=== PATIENT | male | born 1930 | race Caucasian/White ===

== ENCOUNTER 2017-05-17 16:11 | Inpatient (IN) | payer MEDICARE, OTHER ==
[2017-05-17 16:22] VITALS: BMI 30.5
--- NOTE | 2017-05-17 17:16 | PDOC ---
History of Present Illness - General Chief Complaint: Injury Stated Complaint: FALL INJURY Time Seen by Provider: 05/17/17 16:30 History Source: Patient Exam Limitations: Language Barrier - History of Present Illness Initial Comments: 05/17/17 17:05 Patient is a 86M with history of prostate cancer (last chemo march 10, not on chemo) here today complaining of a fall. He was trying to get into the car, but missed and fell to the ground, hitting his head. He's also complaining of associated intermittent dizziness and weakness, and headache that has been going on for years. He says that he's had multiple tests done, but that they've never figured out what was causing his dizziness. He denies associated chest pain, shortness of breath. He takes no blood thinners. He denies pain or trauma to any other area. Past History - Past Medical History Allergies/Adverse Reactions: Allergies Allergy/AdvReac Type Severity Reaction Status Date / Time No Known Allergies Allergy Verified 05/17/17 16:17 Home Medications: Ambulatory Orders Bicalutamide 50 mg PO DAILY 05/17/17 Tamsulosin HCl 10 mg PO DAILY 05/17/17 Other medical history: ARTHRITIS, ENLARGED PROSTATE - Suicide/Smoking/Psychosocial Hx Smoking History: Never smoked Review of Systems - Review of Systems Comments:: 05/17/17 17:16 GENERAL/CONSTITUTIONAL: No fever or chills. Positive for weakness and dizziness. HEAD, EYES, EARS, NOSE AND THROAT: No change in vision. No sore throat. CARDIOVASCULAR: No chest pain or shortness of breath RESPIRATORY: No cough, wheezing, or hemoptysis. GASTROINTESTINAL: No nausea, vomiting, diarrhea or constipation. GENITOURINARY: No dysuria, frequency, or change in urination. MUSCULOSKELETAL: Positive for bilateral knee pain SKIN: No rash NEUROLOGIC: No headache, vertigo, loss of consciousness, or change in strength/ sensation. HEMATOLOGIC/LYMPHATIC: No anemia, easy bleeding, or history of blood clots. ALLERGIC/IMMUNOLOGIC: No hives or skin allergy. *Physical Exam - Vital Signs Last Vital Signs Temp Pulse Resp BP Pulse Ox 98.3 F 93 H 19 130/72 98 05/17/17 16:17 05/17/17 16:17 05/17/17 16:17 05/17/17 16:17 05/17/17 16:41 - Physical Exam Comments: 05/17/17 17:17 GENERAL: Awake, alert, and fully oriented, in no acute distress HEAD: No signs of trauma, normocephalic, 4x4 cm area of erythema, no lacerations , no abrasions, nontender, no deformities EYES: PERRLA, EOMI, sclera anicteric, conjunctiva clear ENT: Auricles normal inspection, hearing grossly normal, nares patent, oropharynx clear without exudates. Moist mucosa NECK: Normal ROM, supple, no lymphadenopathy, JVD, or masses, no midline tenderness LUNGS: No distress, speaks full sentences, clear to auscultation bilaterally HEART: Regular rate and rhythm, normal S1 and S2, no murmurs, rubs or gallops, peripheral pulses normal and equal bilaterally. ABDOMEN: Soft, nontender, normoactive bowel sounds. No guarding, no rebound. No masses EXTREMITIES: Normal inspection, Normal range of motion, no edema. No clubbing or cyanosis. No evidence of trauma NEUROLOGICAL: Cranial nerves II through XII grossly intact. Normal speech, no focal sensorimotor deficits SKIN: Warm, Dry, normal turgor, no rashes or lesions noted. ED Treatment Course - LABORATORY CBC & Chemistry Diagram: 05/17/17 17:10 05/17/17 17:10 - RADIOLOGY Radiology Studies Ordered: Category Date Time Status HEAD CT WITHOUT CONTRAST [CT] Stat CT Scan 05/17/17 16:49 Ordered CHEST X-RAY PORTABLE* [RAD] Stat Radiology 05/17/17 16:49 Ordered Medical Decision Making - Medical Decision Making 05/17/17 17:20 86M with history of prostate cancer (s/p chemo, last treatment March 10) here today complaining of headache after fall. Vital signs stable and normal. Will evaluate with labs, cxr, ecg, and head ct. 05/17/17 18:12 EKG shows afib, rate 77bpm. Irregular, no p-waves. No st-elevations. T-wave inversion in lead III. 05/17/17 19:[address] There is no acute cortical infarction, intracranial mass, edema, hydrocephalus or abnormal extraaxial collection. 05/17/17 19:37 Laboratory Tests 05/17/17 05/17/17 05/17/17 17:10 17:10 17:10 WBC 6.5 Hgb 9.1 L Hct 28.7 L Plt Count 253 INR 1.13 Troponin I 0.02 CBC shows an anemia. INR normal. Trop negative. 05/17/17 23:20 Admitted for new onset afib. *DC/Admit/Observation/Transfer Diagnosis at time of Disposition: Atrial fibrillation Qualifiers: Atrial fibrillation type: unspecified Qualified Code(s): I48.91 - Unspecified atrial fibrillation - Discharge Dispostion Condition at time of disposition: Good Admit: Yes
[2017-05-17 17:17] LABS: BASOPHIL 0.9 % (0-2.0); EOSINOPHIL 1.2 % (0-4.5); MCH 21.1 pg (25.7-33.7); MCHC 31.7 g/dl (32.0-35.9); MEAN CELL VOLUME 66.5 fl (80-96); MEAN PLT VOLUME 7.4 fl (7.5-11.1); NEUTROPHILS 62.5 % (42.8-82.8); PLATELET COUNT 253 K/MM3 (134-434); RDW 17.6 % (11.9-15.9); WHITE BLOOD COUNT 6.5 K/mm3 (4.0-10.0)
[2017-05-17 17:30] LABS: INR 1.13 (0.82-1.09); PROTHROMBIN TIME (PATIENT) 12.5 SEC (9.98-11.88)
--- NOTE | 2017-05-17 17:39 | PDOC ---
Attending Attestation - Resident Resident Name: Nick Sanders - ED Attending Attestation I have performed the following: I have examined & evaluated the patient, The case was reviewed & discussed with the resident, I agree w/resident's findings & plan, Exceptions are as noted - Medical Decision Making 05/17/17 18:40 Addendum to scribe chart- Patient noted to have afib on EKG. D/w family, appears to be new onset. Will attempt to confirm with PMD. <Sofiya Stokes - Last Filed: 05/17/17 18:40> - HPI HPI: The patient is an 86 year old male, accompanied by family, with a past medical history of prostate cancer (last chemo February 2017, not currently on chemo) who presents to the emergency department today s/p fall. The patient woke up dizzy this morning, fell, and hit his head on the concrete. As per daughter, the patient has chronic dizziness. In ED daughter states that the patients belly is larger than normal and had been spasming while receiving and ECG. GENERAL/CONSTITUTIONAL: No fever or chills. No weakness. HEAD, EYES, EARS, NOSE AND THROAT: (+) Small hematoma to right occiput. No change in vision. No ear pain or discharge. No sore throat. GASTROINTESTINAL: No nausea, vomiting, diarrhea or constipation. GENITOURINARY: No dysuria, frequency, or change in urination. CARDIOVASCULAR: No chest pain or shortness of breath. RESPIRATORY: No cough, wheezing, or hemoptysis. MUSCULOSKELETAL: No joint or muscle swelling or pain. No neck or back pain. SKIN: No rash NEUROLOGIC: (+) No headache, dizziness, or change in strength/sensation. ENDOCRINE: No increased thirst. No abnormal weight change. HEMATOLOGIC/LYMPHATIC: No anemia, easy bleeding, or history of blood clots. ALLERGIC/IMMUNOLOGIC: No hives or skin allergy. - Physicial Exam PE: 05/17/17 18:02 GENERAL: Awake, alert, and fully oriented, in no acute distress HEAD: (+) Small hematoma to right occiput. EYES: PERRLA, EOMI, sclera anicteric, conjunctiva clear ENT: Auricles normal inspection, hearing grossly normal, nares patent, oropharynx clear without exudates. Moist mucosa NECK: Normal ROM, supple, no lymphadenopathy, JVD, or masses LUNGS: Breath sounds equal, clear to auscultation bilaterally. No wheezes, and no crackles HEART: Regular rate and rhythm, normal S1 and S2, no murmurs, rubs or gallops ABDOMEN: (+) Soft, nontender, normoactive bowel sounds. No guarding, no rebound. Protuberant abdomen EXTREMITIES: Normal range of motion, no edema. No clubbing or cyanosis. No cords, erythema, or tenderness NEUROLOGICAL: Cranial nerves II through XII grossly intact. Normal speech SKIN: Warm, Dry, normal turgor, no rashes or lesions noted. - Medical Decision Making 05/17/17 18:01 Patient is status post fall after dizziness. Patient has chronic dizziness and has been worked up previously for chronic dizziness. Plan: Will obtain head CT based on age Cardiac workup If within normal limits will discharge home Exam: CT Head Impression: No acute skull fracture, intracranial hemorrhage or parenchymal edema demonstrated. There is no acute cortical infarction, intracranial mass, edema, hydrocephalus or abnormal extra axial collection. 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 Read By: Dr. Thiago Nick MD Documentation prepared by Nawaf Dominique, acting as certified medical records coder for Sofiya Stokes MD. <Nawaf Dominique - Last Filed: 05/18/17 00:28>
[2017-05-17 17:41] LABS: ALBUMIN 3.3 g/dl (3.4-5.0); ANION GAP 5 (8-16); BILIRUBIN,TOTAL 0.5 mg/dL (0.2-1.0); CO2 27 mmol/L (21-32); CREATININE 1.1 mg/dL (0.7-1.3); GLUCOSE,RANDOM 127 mg/dL (74-106); MAGNESIUM 2.2 mg/dL (1.8-2.4); SGOT/AST 17 U/L (15-37); SGPT/ALT 33 U/L (12-78); TOT PROT 6.4 g/dl (6.4-8.2)
[2017-05-17 17:43] LABS: ALK PHOS 118 U/L (45-117); CPK 87 IU/L (39-308); TROPONIN I 0.02 ng/ml (0.00-0.05)
[2017-05-17 19:45] LABS: ANISOCYTOSIS 2+; HYPOCHROMIA 2+; MICROCYTOSIS 2+; OVALOCYTE 1+; PLATELET COMMENT2 NO CLOTTING DETECTED; PLATELET ESTIMATE ADEQUATE (NORMAL); POIKILOCYTOSIS 2+; POLYCHROMASIA 2+
[2017-05-17 20:46] LABS: URINE APPEARANCE CLEAR; URINE BILIRUBIN NEGATIVE (NEGATIVE); URINE BLOOD NEGATIVE (NEGATIVE); URINE COLOR LTYELLOW; URINE GLUCOSE (UA) NEGATIVE (NEGATIVE); URINE KETONE NEGATIVE (NEGATIVE); URINE LEUK ESTERASE NEGATIVE (NEGATIVE); URINE NITRITE NEGATIVE (NEGATIVE); URINE PROTEIN NEGATIVE (NEGATIVE); URINE UROBILINOGEN NEGATIVE mg/dL (0.2-1.0)
[2017-05-18 08:33] LABS: ALBUMIN 3.4 g/dl (3.4-5.0); ANION GAP 6 (8-16); BILIRUBIN,TOTAL 0.6 mg/dL (0.2-1.0); CALCIUM 8.3 mg/dL (8.5-10.1); CO2 28 mmol/L (21-32); GLUCOSE,RANDOM 103 mg/dL (74-106); SGOT/AST 15 U/L (15-37); SGPT/ALT 31 U/L (12-78); TOT PROT 6.4 g/dl (6.4-8.2)
--- NOTE | 2017-05-18 08:37 | EKG ---
Test Reason : Blood Pressure : / mmHG Vent. Rate : 077 BPM Atrial Rate : 300 BPM P-R Int : 000 ms QRS Dur : 078 ms QT Int : 420 ms P-R-T Axes : 000 -09 025 degrees QTc Int : 475 ms ATRIAL FIBRILLATION ABNORMAL ECG NO PREVIOUS ECGS AVAILABLE Confirmed by MD MERNA, ELLEN ([id number]) on 05/18/2017 8:37:18 AM Referred By: Confirmed By:ELLEN BAUMAN MD
[2017-05-18 08:47] LABS: CPK 111 IU/L (39-308); FERRITIN 8.3 ng/ml (16.4-293.9); TROPONIN I 0.03 ng/ml (0.00-0.05)
[2017-05-18 08:48] LABS: ALK PHOS 115 U/L (45-117)
[2017-05-18] MEDS ORDERED: TAMSULOSIN HCL 0.4 MG CAP.ER.24H (FP) PO SCH (10:00)
[2017-05-18] MEDS ORDERED: FLU VACCINE QUAD 60 MCG/0.5 ML (MDV 17-18) IM ONE (10:00)
[2017-05-18 10:48] LABS: BASOPHIL 0.5 % (0-2.0); EOSINOPHIL 0.9 % (0-4.5); MCHC 31.6 g/dl (32.0-35.9); MEAN CELL VOLUME 66.3 fl (80-96); MEAN PLT VOLUME 8.2 fl (7.5-11.1); NEUTROPHILS 61.7 % (42.8-82.8); PLATELET COUNT 253 K/MM3 (134-434); RDW 17.2 % (11.9-15.9); WHITE BLOOD COUNT 7.9 K/mm3 (4.0-10.0)
--- NOTE | 2017-05-18 10:49 | HP ---
Admitting History and Physical - Admission History of Present Illness: 86M with history of prostate cancer (last chemo march 10, not on chemo) here today complaining of a fall. He was trying to get into the car, but missed and fell to the ground, hitting his head. He's also complaining of associated intermittent dizziness and weakness, and headache that has been going on for years. He says that he's had multiple tests done, but that they've never figured out what was causing his dizziness. He denies associated chest pain, shortness of breath. He takes no blood thinners. He denies pain or trauma to any other area. - Past Medical History Cardiovascular: No: CAD, CHF Renal/: Yes: Cancer (prostate) - Smoking History Smoking history: Never smoked Have you smoked in the past 12 months: No - Alcohol/Substance Use Hx Alcohol Use: No Home Medications - Allergies Allergies/Adverse Reactions: Allergies Allergy/AdvReac Type Severity Reaction Status Date / Time No Known Allergies Allergy Verified 05/17/17 16:17 - Home Medications Home Medications: Ambulatory Orders Bicalutamide 50 mg PO DAILY 05/17/17 Tamsulosin HCl 0.4 mg PO DAILY 05/17/17 Review of Systems - Review of Systems Constitutional: reports: Weakness Cardiovascular: denies: Chest Pain, Palpitations Respiratory: denies: SOB Gastrointestinal: reports: No Symptoms Musculoskeletal: reports: Muscle Weakness Neurological: reports: Headache, Unsteady Gait, Weakness Physical Examination Vital Signs: Vital Signs Temperature 97.5 F L 05/18/17 02:00 Pulse Rate 81 05/18/17 02:00 Respiratory Rate 20 05/18/17 02:00 Blood Pressure 121/71 05/18/17 02:00 O2 Sat by Pulse Oximetry (%) 100 05/18/17 00:00 Cardiovascular: Yes: S1, S2 Respiratory: Yes: Regular, CTA Bilaterally Gastrointestinal: Yes: Normal Bowel Sounds, Soft. No: Tenderness Edema: No Neurological: Yes: Alert, Oriented. No: Confusion, Facial Droop Labs: CBC, BMP 05/18/17 07:50 05/18/17 07:50 Imaging - Results Cat Scan: Report Reviewed Problem List - Problems (1) Atrial fibrillation Assessment/Plan: NEW ONSET WILL REPEAT CT OF HEAD IF NEGATIVE THEN START AC PT EVAL--THEN DECIDE ON NURSING HOME AC RATE CONTROLLED ECHO Code(s): I48.91 - UNSPECIFIED ATRIAL FIBRILLATION Qualifiers: Atrial fibrillation type: unspecified Qualified Code(s): I48.91 - Unspecified atrial fibrillation (2) Fall Assessment/Plan: PT EVAL Code(s): W19.XXXA - UNSPECIFIED FALL, INITIAL ENCOUNTER (3) Prostate cancer Code(s): C61 - MALIGNANT NEOPLASM OF PROSTATE
[2017-05-18] MEDS: BICALUTAMIDE 50 MG TABLET (FP) PO SCH (11:32)
[2017-05-18] MEDS: METOPROLOL TARTRATE 25 MG TABLET (FP) PO SCH (11:32)
--- NOTE | 2017-05-18 12:12 | CON.CARD ---
Consult Consult Specialty:: Cardiology Referred by:: Dr Veliz Reason for Consultation:: fall, afib - History of Present Illness Chief Complaint: fall History of Present Illness: He is an 86 year old man history of HTN not on medications anymore for several years, prostate cancer s/p XRT 2010 getting injections, admitted with a fall while getting out of a car. Denies dizziness, palpitations, lightheadedness or chest pain. No LOC. No prior or recent falls or events. 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 Noted to be in atrial fibrillation in the ER with controlled rates. - History Source History Provided By: Patient, Family Member, Medical Record Limitations to Obtaining History: Poor Historian - Past Medical History Cardio/Vascular: No: CAD, CHF Renal/: Yes: Cancer (prostate) - Alcohol/Substance Use Hx Alcohol Use: No - Smoking History Smoking history: Never smoked Have you smoked in the past 12 months: No Home Medications - Allergies Allergies/Adverse Reactions: Allergies Allergy/AdvReac Type Severity Reaction Status Date / Time No Known Allergies Allergy Verified 05/17/17 16:17 - Home Medications Home Medications: Ambulatory Orders Bicalutamide 50 mg PO DAILY 05/17/17 Tamsulosin HCl 0.4 mg PO DAILY 05/17/17 Family Disease History - Family Disease History Family History: Unable to Obtain Review of Systems - Review of Systems Constitutional: reports: No Symptoms Eyes: reports: No Symptoms HENT: reports: No Symptoms Neck: reports: No Symptoms Cardiovascular: reports: No Symptoms Respiratory: reports: No Symptoms Gastrointestinal: reports: No Symptoms Genitourinary: reports: No Symptoms Vital Signs: Vital Signs Temperature 97.8 F 05/18/17 10:00 Pulse Rate 75 05/18/17 10:00 Respiratory Rate 18 05/18/17 10:00 Blood Pressure 136/83 05/18/17 10:00 O2 Sat by Pulse Oximetry (%) 100 05/18/17 00:00 Constitutional: Yes: Well Nourished, No Distress, Calm Eyes: Yes: Conjunctiva Clear, EOM Intact HENT: Yes: Normocephalic Neck: Yes: Supple, Trachea Midline Respiratory: Yes: Regular, CTA Bilaterally Gastrointestinal: Yes: Normal Bowel Sounds, Soft Cardiovascular: Yes: Pulse Irregular JVD: No Carotid Bruit: No PMI: Non-Displaced Heart Sounds: Yes: S1, S2 Musculoskeletal: Yes: WNL Extremities: Yes: WNL Edema: No Peripheral Pulses WNL: Yes - Other Data Labs, Other Data: CBC, BMP 05/18/17 07:50 05/18/17 07:50 INR, PTT INR 1.13 (0.82-1.09) 05/17/17 17:10 Troponin, BNP 05/18/17 07:50 Troponin I 0.03 D Troponin, BNP 05/18/17 07:50 Troponin I 0.03 D atrial fibrillation, nl axis and intervals, no st or t wave changes. Echo: Pending Imaging - Results Chest X-ray: Report Reviewed (dominique) Cat Scan: Report Reviewed (chronic appearing punctate lacunes) Problem List - Problems (1) Atrial fibrillation Assessment/Plan: This is likely chronic atrial fibrillation with controlled VR. Echo would start Eliquis 5 mg bid if repeat head CT is negative for bleed. PT evaluation. No need for other medications. Rates are generally controlled off of medications. Continue telemetry. Code(s): I48.91 - UNSPECIFIED ATRIAL FIBRILLATION Qualifiers: Atrial fibrillation type: chronic Qualified Code(s): I48.2 - Chronic atrial fibrillation
--- NOTE | 2017-05-18 16:05 | CON.NEURO ---
Consult - History of Present Illness History of Present Illness: 86M with history of prostate cancer (last chemo march 10, not on chemo) here today complaining of a fall. He was trying to get into the car, but missed and fell to the ground, hitting his head. He's also complaining of associated intermittent dizziness and weakness, and headache that has been going on for years. He says that he's had multiple tests done, but that they've never figured out what was causing his dizziness. He denies associated chest pain, shortness of breath. He takes no blood thinners. He denies pain or trauma to any other area. also notes has numbness of his hands, unknown onet. and son bedside--going down for repeat HD Ct. found to be in AFIB. CT HD IMPRESSION: 1. No acute intracranial hemorrhage or acute skull fracture. No mass effect, midline shift or hydrocephalus. 2. Generalized age-related volume loss with mild microvascular ischemic changes and punctate chronic appearing lacunar infarcts in the right parietal periatrial white matter and right gangliocapsular region. - History Source History Provided By: Medical Record - Past Medical History Cardio/Vascular: No: CAD, CHF Renal/: Yes: Cancer (prostate) - Alcohol/Substance Use Hx Alcohol Use: No - Smoking History Smoking history: Never smoked Have you smoked in the past 12 months: No Home Medications - Allergies Allergies/Adverse Reactions: Allergies Allergy/AdvReac Type Severity Reaction Status Date / Time No Known Allergies Allergy Verified 05/17/17 16:17 - Home Medications Home Medications: Ambulatory Orders Bicalutamide 50 mg PO DAILY 05/17/17 Tamsulosin HCl 0.4 mg PO DAILY 05/17/17 Physical Exam-Neuro Vital Signs: Vital Signs Temperature 97.8 F 05/18/17 14:00 Pulse Rate 73 05/18/17 14:00 Respiratory Rate 20 05/18/17 14:00 Blood Pressure 138/80 05/18/17 14:00 O2 Sat by Pulse Oximetry (%) 97 05/18/17 09:00 Constitutional: Yes: Well Nourished, Calm Labs: CBC, BMP 05/18/17 07:50 05/18/17 07:50 INR, PTT INR 1.13 (0.82-1.09) 05/17/17 17:10 - Neuro Exam Level Of Consciousness: Yes: Alert, Oriented to Person (Awake and alert, EOMI, no nystagmus, no facial, motor 5/5, sesn in UE WNL, reflexes reduced ; gait not tested) Imaging - Results Cat Scan: Report Reviewed, Image Reviewed Problem List - Problems (1) Atrial fibrillation Code(s): I48.91 - UNSPECIFIED ATRIAL FIBRILLATION Qualifiers: Atrial fibrillation type: chronic Qualified Code(s): I48.2 - Chronic atrial fibrillation (2) Fall Code(s): W19.XXXA - UNSPECIFIED FALL, INITIAL ENCOUNTER (3) Prostate cancer Code(s): C61 - MALIGNANT NEOPLASM OF PROSTATE (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 He was trying to get into the car, but missed and fell to the ground, hitting his head. He's also complaining of associated intermittent dizziness and weakness, and headache that has been going on for years. He says that he's had multiple tests done, but that they've never figured out what was causing his dizziness. He denies associated chest pain, shortness of breath. He takes no blood thinners. He denies pain or trauma to any other area. also notes has numbness of his hands, unknown onset. found to be in AFIB. exam nonfocal , no clear evidence of a new stroke; + AFIB 1) await repeat HD CT, if (-) for new event can start AC for AFIB from neuro standpoint 2) Numbness hands , ? cts vs chemo induced neuropathy , doubt central in nature Dr Horne [phone]
[2017-05-19 08:11] LABS: SERUM IRON 22 ug/dL (38-169); TOTAL IRON BINDING CAPACITY 360 ug/dL (250-450); UIBC 338 ug/dL (111-343)
[2017-05-19] MEDS: ASPIRIN COATED 81 MG TABLET.EC PO SCH (09:07)
[2017-05-19] MEDS: METOPROLOL TARTRATE 25 MG TABLET (FP) PO SCH (09:07)
[2017-05-19] MEDS: TAMSULOSIN HCL 0.4 MG CAP.ER.24H (FP) PO SCH (09:07)
[2017-05-19] MEDS: BICALUTAMIDE 50 MG TABLET (FP) PO SCH ×2 (09:12→09:22)
--- NOTE | 2017-05-19 11:24 | EKG ---
Test Reason : Blood Pressure : / mmHG Vent. Rate : 078 BPM Atrial Rate : 078 BPM P-R Int : 000 ms QRS Dur : 080 ms QT Int : 412 ms P-R-T Axes : 000 009 044 degrees QTc Int : 469 ms ATRIAL FIBRILLATION ABNORMAL ECG WHEN COMPARED WITH ECG OF 17-MAY-2017 17:18, NO SIGNIFICANT CHANGE WAS FOUND Confirmed by ADONIS ARMANDO MD ([id number]) on 05/19/2017 11:24:08 AM Referred By: JAYESH ANNE Confirmed By:ADONIS ARMANDO MD
--- NOTE | 2017-05-19 14:26 | PN ---
Progress Note, Physician Chief Complaint: Patient appears comfortable. He reports no palpitation, chest pain or SOB. Tele shows atrial fibrillation with controlled ventricular rate. History of Present Illness: 86 year old man with a history of HTN not on medications any more for several years, prostate cancer s/p XRT 2010 getting injections, admitted with a fall while getting out of a car without LOC. No prior or recent falls or events. 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 Noted to be in atrial fibrillation in the ER with controlled rates. - Current Medication List Current Medications: Active Medications Apixaban (Eliquis -) 5 mg PO BID [facility] Aspirin (Ecotrin -) 81 mg PO DAILY [facility] Last Admin: 05/19/17 09:07 Dose: 81 mg Bicalutamide (Casodex -) 50 mg PO DAILY [facility] Last Admin: 05/19/17 09:22 Dose: 50 mg Metoprolol Tartrate (Lopressor -) 25 mg PO DAILY [facility] Last Admin: 05/19/17 09:07 Dose: 25 mg Tamsulosin HCl (Flomax -) 0.4 mg PO DAILY@0830 [facility] Last Admin: 05/19/17 09:07 Dose: 0.4 mg - Objective Vital Signs: Vital Signs Temperature 98.3 F 05/19/17 08:50 Pulse Rate 92 H 05/19/17 08:50 Respiratory Rate 18 05/19/17 08:50 Blood Pressure 145/55 05/19/17 08:50 O2 Sat by Pulse Oximetry (%) 97 05/19/17 08:48 Constitutional: Yes: Well Nourished, No Distress Eyes: Yes: WNL, Conjunctiva Clear HENT: Yes: WNL, Atraumatic, Normocephalic Neck: Yes: WNL, Supple, Trachea Midline Cardiovascular: Yes: Pulse Irregular Respiratory: Yes: Regular, CTA Bilaterally Gastrointestinal: Yes: WNL, Normal Bowel Sounds, Soft, Abdomen, Obese ...Rectal Exam: Yes: Deferred Extremities: Yes: WNL Edema: No Peripheral Pulses WNL: Yes Labs: CBC, BMP 05/18/17 07:50 05/18/17 07:50 INR, PTT INR 1.13 (0.82-1.09) 05/17/17 17:10 Assessment/Plan Mr. Reyes has likely chronic atrial fibrillation with controlled ventricular response. Continue Eliquis 5 mg bid for stroke prevention. Echo pending. No need for other medications. Ventricular rates are generally controlled off of medications. Continue telemetry for now.
--- NOTE | 2017-05-19 16:39 | PN ---
Progress Note, Physician Chief Complaint: AWAKE ALERT BEDSIDE CHART AND NOTES REVIEWED - Current Medication List Current Medications: Active Medications Apixaban (Eliquis -) 5 mg PO BID [facility] Aspirin (Ecotrin -) 81 mg PO DAILY [facility] Last Admin: 05/19/17 09:07 Dose: 81 mg Bicalutamide (Casodex -) 50 mg PO DAILY [facility] Last Admin: 05/19/17 09:22 Dose: 50 mg Metoprolol Tartrate (Lopressor -) 25 mg PO DAILY [facility] Last Admin: 05/19/17 09:07 Dose: 25 mg Tamsulosin HCl (Flomax -) 0.4 mg PO DAILY@0830 [facility] Last Admin: 05/19/17 09:07 Dose: 0.4 mg - Objective Vital Signs: Vital Signs Temperature 98.5 F 05/19/17 14:15 Pulse Rate 69 05/19/17 14:15 Respiratory Rate 18 05/19/17 14:15 Blood Pressure 124/62 05/19/17 14:15 O2 Sat by Pulse Oximetry (%) 97 05/19/17 08:48 Constitutional: Yes: Mild Distress Eyes: Yes: WNL HENT: Yes: WNL Neck: Yes: WNL Cardiovascular: Yes: Pulse Irregular Respiratory: Yes: WNL Gastrointestinal: Yes: WNL Genitourinary: Yes: WNL Musculoskeletal: Yes: Muscle Weakness Extremities: Yes: WNL Edema: Yes Edema: LLE: 1+, RLE: 1+ Peripheral Pulses WNL: Yes Integumentary: Yes: WNL Wound/Incision: Yes: Clean/Dry Neurological: Yes: Pre-Existing Deficit, Weakness ...Motor Strength: LLE, RLE Psychiatric: Yes: WNL Labs: CBC, BMP 05/18/17 07:50 05/18/17 07:50 INR, PTT INR 1.13 (0.82-1.09) 05/17/17 17:10 Problem List - Problems (1) Atrial fibrillation Code(s): I48.91 - UNSPECIFIED ATRIAL FIBRILLATION Qualifiers: Atrial fibrillation type: chronic Qualified Code(s): I48.2 - Chronic atrial fibrillation (2) Fall Code(s): W19.XXXA - UNSPECIFIED FALL, INITIAL ENCOUNTER (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 Assessment/Plan AFIB RATE CONTROLLED ON METOPROLOL CONTINUE AC CARDIO FOLLOW UP ECHO REVIEWED OOB TO CHAIR WITH PT MRI BRAIN AGREE WITH NEUROLOGY IF DIZZINESS CONTINUES SHOULD HOLD OFF ON FLOMAX AND MONITOR
[2017-05-19] MEDS: APIXABAN 5 MG TABLET PO SCH (23:25)
[2017-05-20 07:55] VITALS: BP 122/68
[2017-05-20] MEDS ORDERED: PT OWN MED DRAWER 7, Y5N ONE (08:29)
[2017-05-20 08:37] LABS: FREE T4 1.11 ng/dl (0.76-1.16); THYROID STIMULATING HORMONE 3.91 uIU/ml (0.358-3.74)
[2017-05-20] MEDS: BICALUTAMIDE 50 MG TABLET (FP) PO SCH (09:14)
[2017-05-20] MEDS: ASPIRIN COATED 81 MG TABLET.EC PO SCH (09:14)
[2017-05-20] MEDS: APIXABAN 5 MG TABLET PO SCH (09:14)
[2017-05-20] MEDS: METOPROLOL TARTRATE 25 MG TABLET (FP) PO SCH (09:14)
[2017-05-20] MEDS: TAMSULOSIN HCL 0.4 MG CAP.ER.24H (FP) PO SCH (09:14)
[2017-05-20] MEDS ORDERED: FERROUS SO4 325 MG TABLET (FP) PO SCH (10:00)
--- NOTE | 2017-05-20 13:38 | PN ---
Progress Note, Physician Chief Complaint: Patient appears comfortable. He reports no palpitation, chest pain or SOB. Tele shows atrial fibrillation with controlled ventricular rate. History of Present Illness: 86 year old man with a history of HTN not on medications any more for several years, prostate cancer s/p XRT 2010 getting injections, admitted with a fall while getting out of a car without LOC. No prior or recent falls or events. 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 Noted to be in atrial fibrillation in the ER with controlled rates. Echocardiogram 05/19/2017 showed upper septal hypertrophy with normal wall motion and systolic function. LVEF = 56%. Normal RV. Mild LA and RA dilatation. Mild to moderate MR and mild AI. - Current Medication List Current Medications: Active Medications Apixaban (Eliquis -) 5 mg PO BID [facility] Last Admin: 05/20/17 09:14 Dose: 5 mg Aspirin (Ecotrin -) 81 mg PO DAILY [facility] Last Admin: 05/20/17 09:14 Dose: 81 mg Bicalutamide (Casodex -) 50 mg PO DAILY [facility] Last Admin: 05/20/17 09:14 Dose: 50 mg Ferrous Sulfate (Feosol -) 325 mg PO DAILY [facility] Last Admin: 05/20/17 09:14 Dose: 325 mg Metoprolol Tartrate (Lopressor -) 25 mg PO DAILY [facility] Last Admin: 05/20/17 09:14 Dose: 25 mg Tamsulosin HCl (Flomax -) 0.4 mg PO DAILY@0830 [facility] Last Admin: 05/20/17 09:14 Dose: 0.4 mg - Objective Vital Signs: Vital Signs Temperature 98 F 05/20/17 07:54 Pulse Rate 74 05/20/17 07:54 Respiratory Rate 20 05/20/17 08:00 Blood Pressure 122/68 05/20/17 07:54 O2 Sat by Pulse Oximetry (%) 98 05/20/17 08:00 Constitutional: Yes: Well Nourished, No Distress, Calm Eyes: Yes: Conjunctiva Clear, EOM Intact HENT: Yes: Atraumatic, Normocephalic Neck: Yes: WNL, Supple, Trachea Midline Respiratory: Yes: Regular, CTA Bilaterally Gastrointestinal: Yes: Normal Bowel Sounds, Soft, Abdomen, Obese ...Rectal Exam: Yes: Deferred Extremities: Yes: WNL Edema: No Peripheral Pulses WNL: Yes Labs: CBC, BMP 05/18/17 07:50 05/18/17 07:50 INR, PTT INR 1.13 (0.82-1.09) 05/17/17 17:10 Assessment/Plan Mr. Reyes has likely chronic atrial fibrillation with controlled ventricular response. He has normal cardiac function with mild left and right atrial dilatation. Continue Eliquis 5 mg bid for stroke prevention. No need for other medications. Ventricular rates are generally controlled off of medications. May discontinue telemetry. He can be discharged with current medication. Please call us for reconsult as needed.
[2017-05-20 14:38] VITALS: PULSE 60; TEMP 97.8
--- NOTE | 2017-05-20 15:26 | PN ---
Progress Note, Physician - Current Medication List Current Medications: Active Medications Apixaban (Eliquis -) 5 mg PO BID [facility] Last Admin: 05/20/17 09:14 Dose: 5 mg Aspirin (Ecotrin -) 81 mg PO DAILY [facility] Last Admin: 05/20/17 09:14 Dose: 81 mg Bicalutamide (Casodex -) 50 mg PO DAILY [facility] Last Admin: 05/20/17 09:14 Dose: 50 mg Ferrous Sulfate (Feosol -) 325 mg PO DAILY [facility] Last Admin: 05/20/17 09:14 Dose: 325 mg Metoprolol Tartrate (Lopressor -) 25 mg PO DAILY [facility] Last Admin: 05/20/17 09:14 Dose: 25 mg Tamsulosin HCl (Flomax -) 0.4 mg PO DAILY@0830 [facility] Last Admin: 05/20/17 09:14 Dose: 0.4 mg - Objective Vital Signs: Vital Signs Temperature 97.8 F 05/20/17 14:37 Pulse Rate 60 05/20/17 14:37 Respiratory Rate 18 05/20/17 14:37 Blood Pressure 122/68 05/20/17 07:54 O2 Sat by Pulse Oximetry (%) 98 05/20/17 08:00 Labs: CBC, BMP 05/18/17 07:50 05/18/17 07:50 INR, PTT INR 1.13 (0.82-1.09) 05/17/17 17:10 Problem List - Problems (1) Atrial fibrillation Code(s): I48.91 - UNSPECIFIED ATRIAL FIBRILLATION Qualifiers: Atrial fibrillation type: chronic Qualified Code(s): I48.2 - Chronic atrial fibrillation (2) Fall Code(s): W19.XXXA - UNSPECIFIED FALL, INITIAL ENCOUNTER (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
--- NOTE | 2017-05-20 15:35 | DS ---
Physical Examination Vital Signs: Vital Signs Temperature 97.8 F 05/20/17 14:37 Pulse Rate 60 05/20/17 14:37 Respiratory Rate 18 05/20/17 14:37 Blood Pressure 122/68 05/20/17 07:54 O2 Sat by Pulse Oximetry (%) 98 05/20/17 08:00 Constitutional: Yes: Mild Distress Eyes: Yes: WNL HENT: Yes: WNL Neck: Yes: WNL Cardiovascular: Yes: Pulse Irregular Respiratory: Yes: WNL Gastrointestinal: Yes: WNL Renal/: Yes: WNL Musculoskeletal: Yes: WNL Extremities: Yes: WNL Edema: No Peripheral Pulses WNL: Yes Integumentary: Yes: WNL Wound/Incision: Yes: Clean/Dry Neurological: Yes: WNL ...Motor Strength: WNL Psychiatric: Yes: WNL Labs: CBC, BMP 05/18/17 07:50 05/18/17 07:50 Discharge Summary Reason For Visit: ATRIAL FIBRILLATION Current Active Problems Atrial fibrillation (Acute) Fall (Acute) Late effects of CVA (cerebrovascular accident) (Acute) Paresthesia (Acute) Prostate cancer (Acute) Procedures: Principal: ct head Other Procedures: labs Hospital Course: admitted to telemetry for dizziness, teated and found to have acute afib, can have mri brain outppatient Condition: Good - Instructions Diet, Activity, Other Instructions: low salt see dr santana in 2 days Referrals: German Santana [Primary Care Provider] - Disposition: VNS/HOME HEALTH CARE - Home Medications Comprehensive Discharge Medication List: Ambulatory Orders Bicalutamide 50 mg PO DAILY 05/17/17 Apixaban [Eliquis -] 5 mg PO BID #60 tablet 05/20/17 Ferrous Sulfate [Feosol] 325 mg PO DAILY #30 tab 05/20/17 Metoprolol Tartrate [Lopressor -] 25 mg PO DAILY #30 tablet 05/20/17 Tamsulosin HCl 0.4 mg PO DAILY #0 tab 05/20/17
== END 2017-05-20 18:19 | disposition home health service (06) | DRG 310 ==
LOC: JER 16:11 → JERBED 19:52 → UNDOADMIN 20:02 → JERBED 20:02 → J4W 22:21
PROVIDERS: ADMIT Family Medicine; ATTEND Family Medicine
DX: I48.2 Chronic atrial fibrillation (principal); C61 Malignant neoplasm of prostate; R20.2 Paresthesia of skin; Z86.73 Personal history of transient ischemic attack (TIA), and cerebral infarction without residual deficits; R42 Dizziness and giddiness
CPT/HCPCS: 36415; 70450-TC; 71010-TC; 80053; 81003; 82607; 82728; 83540; 83550; 83735; 84439; 84443; 84484; 85025; 85610; 90688; 93005; 93010; 93306-TC; 97116-GP; 97161-GP; 99283-25; G0008